=== PATIENT | male | born 1985 | race African-American/Black ===

== ENCOUNTER 2021-09-10 19:29 | Emergency (ER) | payer OTHER, SELFPAY | END 2021-09-10 20:03 | disposition home or self-care (01) | LOC: MADERS 19:29 | DX: S16.1XXA Strain of muscle, fascia and tendon at neck level, initial encounter (principal); I10 Essential (primary) hypertension; E11.9 Type 2 diabetes mellitus without complications; V43.62XA Car passenger injured in collision with other type car in traffic accident, initial encounter | CPT/HCPCS: 99283 ==